=== PATIENT | male | born 1955 | race Asian ===

== ENCOUNTER 2020-07-27 21:29 | Emergency (ER) | payer MEDICAID ==
[~2020-07-27] VITALS: Ht 165.1 cm; Wt 74.4 kg
[2020-07-27 21:55] VITALS: BP_SYST 150
[2020-07-27] MEDS ORDERED: HYDROcodone/ACETAMIN 7.5-325 MG TAB ONE (23:40)
[2020-07-27] MEDS ORDERED: HYDROcodone/ACETAMIN 7.5-325 MG TAB PO ONE (23:45)
[2020-07-28] MEDS ORDERED: HYDR-3917 PO (00:29)
[2020-07-28 00:45] VITALS: BP_SYST 124
== END 2020-07-28 00:45 | disposition home or self-care (01) ==
LOC: SED 21:29
DX: M25.531 Pain in right wrist (principal); W11.XXXA Fall on and from ladder, initial encounter; Y93.89 Activity, other specified; Y92.89 Other specified places as the place of occurrence of the external cause; Y99.8 Other external cause status
CPT/HCPCS: 99283